=== PATIENT | male | born 1945 | race Caucasian/White ===

== ENCOUNTER 2021-03-11 04:22 | Inpatient (IN) | payer OTHER ==
[~2021-03-11] VITALS: Ht 175.3 cm; Wt 143.1 kg
[2021-03-11] MEDS ORDERED: NITROGLYCERIN SINGLE TAB 0.4 MG SL ONE (04:41)
--- NOTE | 2021-03-11 04:50 | NUR ---
PT BIBA FROM [facility] ON BIPAP VIA [facility]. PT TOLERATING BIPAP WELL. PT GIVEN SOLUMEDROL, ALBUTEROL, DUONEB X 3, 2GM MG AT [facility] & 1/2MG OF VERSED ENROUTE. DIMINISHED IN ALL LIN. PT SITTING ON EDGE OF BED. PIV TO RAC, FLUSHES WELL.
[2021-03-11 04:55] LABS: MEAN CORPUSCULAR HEMOGLOBIN 29.3 pg (27.5-34.5); MEAN PLATELET VOLUME 8.1 fL (7.4-10.4); PLATELET COUNT 224 x10^3/uL (130-400); RED BLOOD COUNT 3.54 x10^6/uL (4.38-5.82); RED CELL DISTRIBUTION WIDTH 15.7 % (9.4-14.8)
[2021-03-11] MEDS ORDERED: ACETAMINOPHEN 325 MG TABLET PO PRN (05:00)
[2021-03-11] MEDS ORDERED: PROMETHAZINE 25 MG/ML, 1ML IM PRN (05:00)
[2021-03-11] MEDS ORDERED: OXYcodone IR 5MG TABLET PO PRN (05:00)
[2021-03-11] MEDS ORDERED: morphine SULFATE 10 MG/ML, 1ML IVPush PRN (05:00)
[2021-03-11] MEDS ORDERED: POLYETHYLENE GLYCOL 17 GM PACKET PO PRN (05:00)
[2021-03-11] MEDS ORDERED: ONDANSETRON ODT 4 MG PO PRN (05:00)
[2021-03-11] MEDS ORDERED: hydrALAzine 20 MG/ML, 1ML IVPush PRN (05:00)
[2021-03-11] MEDS ORDERED: NITROGLYCERIN 0.4 MG BOTTLE (25 TABS) SL PRN (05:00)
[2021-03-11] MEDS ORDERED: HEPARIN 5,000 UNITS/ML, 1ML SQ SCH (05:00)
[2021-03-11] MEDS ORDERED: ONDANSETRON 2MG/ML, 2ML IVPush PRN (05:00)
[2021-03-11] MEDS ORDERED: DOCUSATE 100 MG CAPSULE PO PRN (05:00)
[2021-03-11] MEDS ORDERED: BISACODYL 10 MG SUPP PR PRN (05:00)
[2021-03-11 05:09] LABS: ALBUMIN 3.5 g/dL (3.4-5.0); ANION GAP 12 mmol/L (5-15); CALCIUM 9.1 mg/dL (8.5-10.1); CHLORIDE 111 mmol/L (98-107); CREATININE 4.07 mg/dL (0.7-1.3)
[2021-03-11] MEDS ORDERED: FUROSEMIDE 40 MG/4 ML ONE (05:19)
[2021-03-11] MEDS ORDERED: HEPARIN 5,000 UNITS/ML, 1ML ONE (05:19)
[2021-03-11] MEDS ORDERED: FUROSEMIDE 40 MG/4 ML IV ONE (05:30)
[2021-03-11 05:32] LABS: FREE T4 (FREE THYROXINE) 1.03 ng/dL (0.76-1.46)
[2021-03-11 05:37] LABS: MD YES
[2021-03-11 05:38] LABS: BAND#(MANUAL) 0.16 x10^3/uL; BANDS%(MANUAL) 1 % (0-7); MONOS#(MANUAL) 0.16 x10^3/uL (0.3-2.7); MONOS% (MANUAL) 1 % (2-9); SEG#(MANUAL) 15.97 x10^3/uL (1.8-6.8); SEGS% (MANUAL) 98 % (42-75)
[2021-03-11 05:39] LABS: <PLATELET ESTIMATE> ADEQUATE; <PLT MORPHOLOGY> NORMAL PLT MORPH; <RBC MORPHOLOGY> NORMAL
--- NOTE | 2021-03-11 05:56 | NUR ---
pt able to stand & pivot to chair & bsc. continues to tolerate bipap, will ctm. call light inreach. aware of pending bed assignmt.
[2021-03-11] MEDS ORDERED: ALBUTEROL/IPRATROPIUM 2.5MG/0.5MG, 3 ML NPPB SCH (06:00)
--- NOTE | 2021-03-11 06:55 | NUR ---
Took report from Maryanne Hall RN. Pt in bed siting on the side of the bed for comfort on c-pap with retractions. Denies chest pain, reports that he feels like he is getting enough oxygen "I am trying to slow down my breathing". Denies any needs at this time Addendum: 03/11/21 at 0702 by NEENAICELIJuan Took report from Maryanne Hall RN. Pt in bed siting on the side of the bed for comfort on BIPAP with retractions. Denies chest pain, reports that he feels like he is getting enough oxygen "I am trying to slow down my breathing". Denies any needs at this time
--- NOTE | 2021-03-11 07:17 | NUR ---
Pt can speak in 3-4 word sentences. Called pt's for med list. Left a message to call back.
[2021-03-11] MEDS ORDERED: HYDR-3342 PO (07:52)
[2021-03-11] MEDS ORDERED: METO25TA35 PO (07:52)
[2021-03-11] MEDS ORDERED: SPIR25TA5 PO (07:52)
[2021-03-11] MEDS ORDERED: ASPI-963 PO (07:52)
[2021-03-11] MEDS ORDERED: LOSA1TAB25 PO (07:52)
[2021-03-11] MEDS ORDERED: ATOR10TA9 PO (07:52)
[2021-03-11] MEDS ORDERED: ALBU0.63 NEB (07:52)
[2021-03-11] MEDS ORDERED: INSU100I17 SQ (07:52)
[2021-03-11] MEDS ORDERED: VITA1CAP14 PO (07:52)
[2021-03-11] MEDS ORDERED: TIOT4MIS3 INH (07:52)
[2021-03-11] MEDS ORDERED: PANT20TA4 PO (07:52)
[2021-03-11] MEDS ORDERED: IPRA3AMP30 IN (07:52)
[2021-03-11] MEDS ORDERED: CODE15TA PO (07:52)
[2021-03-11] MEDS ORDERED: FURO20TA3 PO (07:52)
[2021-03-11] MEDS ORDERED: INSU100I28 SQ (07:52)
--- NOTE | 2021-03-11 07:55 | NUR ---
called, med reconcile done
--- NOTE | 2021-03-11 07:55 | NUR ---
KAT JAEGER MD at [facility] Addendum: 03/11/21 at 0817 by JMICELIJuan MD [facility]
--- NOTE | 2021-03-11 08:23 | NUR ---
MD Barkley at bedside talking to pt about intubation. Pt RR increasing.
[2021-03-11] MEDS: PROPOFOL 100 ML IV PRN ×6 (08:59→23:43)
[2021-03-11] MEDS ORDERED: FENTANYL PF 1,000 MCG in SODIUM CHLORIDE 0.9% 80 ML IV PRN (09:00)
[2021-03-11] MEDS ORDERED: SUCCINYLCHOLINE 20 MG/ML, 10ML IVPush ONE (09:00)
[2021-03-11] MEDS ORDERED: ETOMIDATE 20 MG/10 ML IV ONE (09:00)
--- NOTE | 2021-03-11 09:02 | NUR ---
PT IN RR DISTRESS, PT AGREES TO INTUBATION. GABRIELLA, P'T CALLED AND AGREES TO INTUBATION. PT GIVEN 20 MG ETOMIDATE AT 0855, 100 MG SUCCINYLCHOLINE GIVEN AT 0855. PT INTUBEATEDWITH 8.5 TUBE AT 24 AT THE LIP AT 0859. BILAT WRIST RESTRAINTS PUT ON. 16 F YAO CATH PUT IN 120ML URINE OUT. 16 F OG PUT IN ON CONT SUCTION. SET UP FOR CENTRAL LINE PER MD BAHENA.
--- NOTE | 2021-03-11 09:22 | NUR ---
3MG MIDAZOLAM GIVEN PER MD HOLDENM
[2021-03-11] MEDS ORDERED: MIDAZOLAM 1 MG/ML, 2ML IVPush ONE (10:00)
[2021-03-11] MEDS ORDERED: NOREPINEPHRINE 8 MG in SODIUM CHLORIDE 0.9% 242 ML IV PRN (10:00)
--- NOTE | 2021-03-11 10:05 | NUR ---
GAVE REPORT TO FAISAL DUVAL RN, PT TO ROOM 55
[2021-03-11] MEDS: ALBUTEROL/IPRATROPIUM 2.5MG/0.5MG, 3 ML INLINE SCH ×4 (11:00→22:40)
[2021-03-11] MEDS ORDERED: ROCURONIUM 10MG/ML,5ML ONE (11:12)
[2021-03-11] MEDS ORDERED: ETOMIDATE 20 MG/10 ML ONE (11:12)
[2021-03-11] MEDS ORDERED: SUCCINYLCHOLINE 20 MG/ML, 10ML ONE (11:12)
[2021-03-11] MEDS ORDERED: PROPOFOL 10 MG/ML, 100ML IV ONE (11:12)
[2021-03-11] MEDS ORDERED: LIDOCAINE-MPF 1%, 2ML ENDO PRN (11:30)
[2021-03-11] MEDS ORDERED: PHARMACY MAY ADJ FOR RENAL FX MC SCH (11:30)
[2021-03-11] MEDS ORDERED: DEXTROSE 50%, 50ML SYRINGE IVPush PRN (11:30)
[2021-03-11] MEDS ORDERED: ONDANSETRON 2MG/ML, 2ML IV PRN (11:30)
[2021-03-11] MEDS ORDERED: GLUCAGON 1 MG IM PRN (11:30)
[2021-03-11] MEDS ORDERED: DEXTROSE 4 GM TAB.CHEW PO PRN (11:30)
[2021-03-11] MEDS ORDERED: SODIUM BICARB 8.4%, 50ML SYRINGE ONE (12:32)
[2021-03-11] MEDS: INSULIN LISPRO 100 UNITS/ML, PEN SQ-INSULIN SCH ×3 (12:44→21:57)
[2021-03-11] MEDS: SODIUM CHLORIDE FLUSH 10ML SYR IVF SCH ×2 (12:52→21:57)
[2021-03-11] MEDS: SODIUM BICARBONATE 8.4% 150 MEQ in DEXTROSE 5% 1,000 ML IV SCH ×2 (12:52→22:52)
[2021-03-11] MEDS ORDERED: SODIUM BICARBONATE 1 MEQ/ML, 50ML VIAL IVPush ONE (13:00)
[2021-03-11] MEDS ORDERED: SODIUM BICARB 8.4%, 50ML SYRINGE IVPush ONE (14:00)
[2021-03-11] MEDS ORDERED: HEPARIN 5,000 UNITS/ML, 1ML IV ONE (14:30)
[2021-03-11] MEDS: HEPARIN 25,000 UNITS/250ML PMX 250 ML IV PRN (15:13)
[2021-03-11] MEDS: NOREPINEPHRINE 8 MG in SODIUM CHLORIDE 0.9% 242 ML IV PRN ×2 (15:34→22:00)
[2021-03-11] MEDS: HEPARIN 5,000 UNITS/ML, 1ML IV PRN (22:52)
[2021-03-12] MEDS: ALBUTEROL/IPRATROPIUM 2.5MG/0.5MG, 3 ML INLINE SCH ×6 (02:40→23:00)
[2021-03-12 04:29] LABS: BASOPHILS % (AUTO) 0 % (0-1); EOSINOPHILS % (AUTO) 0 % (1-7); LYMPHOCYTES % (AUTO) 4 % (22-44); MEAN CORPUSCULAR HEMOGLOBIN 30.2 pg (27.5-34.5); MEAN CORPUSCULAR HGB CONC 32.1 g/dL (33.2-36.2); MEAN PLATELET VOLUME 7.9 fL (7.4-10.4); MONOCYTES % (AUTO) 10 % (2-9); NEUTROPHILS % (AUTO) 86 % (42-75); PLATELET COUNT 179 x10^3/uL (130-400); RED BLOOD COUNT 3.14 x10^6/uL (4.38-5.82); RED CELL DISTRIBUTION WIDTH 15.3 % (9.4-14.8)
[2021-03-12 04:33] LABS: MD NO
[2021-03-12 04:39] LABS: ALANINE AMINOTRANSFERASE 46 U/L (12-78); ANION GAP 7 mmol/L (5-15); CALCIUM 8.8 mg/dL (8.5-10.1); CHLORIDE 105 mmol/L (98-107); CREATININE 3.94 mg/dL (0.7-1.3)
[2021-03-12 04:46] LABS: ALKALINE PHOSPHATASE 59 U/L (45-117); BILIRUBIN,TOTAL 0.5 mg/dL (0.2-1.0); CHOL/HDL RATIO 3.2; CHOLESTEROL, TOTAL 123 mg/dL (140-239); HDL CHOL % 31 % (26-37); HDL CHOLESTEROL (DIRECT) 38 mg/dL (40-60); LDL CHOLESTEROL,CALCULATED 56 mg/dL (54-169); LDL/HDL RATIO 1.5 (0.5-3.0); TRIGLYCERIDES 146 mg/dL (50-200); VLDL CHOLESTEROL 29 mg/dL (0-25)
[2021-03-12 05:00] VITALS: BP 110/55
[2021-03-12] MEDS: FENTANYL PF 1,000 MCG in SODIUM CHLORIDE 0.9% 80 ML IV PRN (05:43)
[2021-03-12] MEDS: PROPOFOL 100 ML IV PRN ×4 (05:44→22:41)
[2021-03-12] MEDS: INSULIN LISPRO 100 UNITS/ML, PEN SQ-INSULIN SCH ×3 (07:28→17:08)
[2021-03-12] MEDS: AZITHROMYCIN 500 MG in SODIUM CHLORIDE 0.9% 250 ML IV SCH (08:14)
[2021-03-12] MEDS: PANTOPRAZOLE 40 MG IV IVPush SCH (09:36)
[2021-03-12] MEDS: SODIUM CHLORIDE FLUSH 10ML SYR IVF SCH ×2 (09:36→21:02)
[2021-03-12] MEDS: HEPARIN 5,000 UNITS/ML, 1ML IV PRN ×2 (12:36→18:09)
[2021-03-12] MEDS: HEPARIN 25,000 UNITS/250ML PMX 250 ML IV PRN (12:38)
--- NOTE | 2021-03-12 13:54 | NUR ---
Vital AF goal: 70 mls/hr off propofol, 60 mls/hr on propofol Addendum: 03/12/21 at [address] Amended: Links added.
[2021-03-12] MEDS: NOREPINEPHRINE 8 MG in SODIUM CHLORIDE 0.9% 242 ML IV PRN (17:30)
[2021-03-13] MEDS: INSULIN LISPRO 100 UNITS/ML, PEN SQ-INSULIN SCH ×5 (00:20→22:28)
[2021-03-13] MEDS: ALBUTEROL/IPRATROPIUM 2.5MG/0.5MG, 3 ML INLINE SCH ×6 (02:55→22:29)
[2021-03-13] MEDS: HEPARIN 25,000 UNITS/250ML PMX 250 ML IV PRN ×2 (04:55→19:09)
[2021-03-13] MEDS: PROPOFOL 100 ML IV PRN ×4 (05:00→21:02)
[2021-03-13 05:22] LABS: BASOPHILS % (AUTO) 0 % (0-1); EOSINOPHILS % (AUTO) 0 % (1-7); LYMPHOCYTES % (AUTO) 4 % (22-44); MEAN CORPUSCULAR HEMOGLOBIN 29.5 pg (27.5-34.5); MEAN CORPUSCULAR HGB CONC 31.7 g/dL (33.2-36.2); MEAN PLATELET VOLUME 8.1 fL (7.4-10.4); MONOCYTES % (AUTO) 10 % (2-9); NEUTROPHILS % (AUTO) 85 % (42-75); PLATELET COUNT 178 x10^3/uL (130-400); RED BLOOD COUNT 2.97 x10^6/uL (4.38-5.82); RED CELL DISTRIBUTION WIDTH 15.7 % (9.4-14.8)
[2021-03-13 05:25] LABS: ANION GAP 6 mmol/L (5-15); CALCIUM 8.8 mg/dL (8.5-10.1); CHLORIDE 105 mmol/L (98-107); CREATININE 3.61 mg/dL (0.7-1.3)
[2021-03-13 06:05] LABS: MD SCAN
[2021-03-13] MEDS: NOREPINEPHRINE 8 MG in SODIUM CHLORIDE 0.9% 242 ML IV PRN ×3 (07:49→22:03)
[2021-03-13] MEDS: AZITHROMYCIN 500 MG in SODIUM CHLORIDE 0.9% 250 ML IV SCH (07:50)
[2021-03-13] MEDS: CEFTRIAXONE 2 GM in DEXTROSE 5% 50 ML IVPB SCH (07:54)
[2021-03-13] MEDS: INSULIN GLARGINE 100 UNITS/ML, PEN SQ-INSULIN SCH ×2 (08:07→17:19)
[2021-03-13] MEDS: ERYTHROMYCIN OPHTH 0.5%, 1GM EACHEYE SCH ×4 (08:10→21:02)
[2021-03-13] MEDS: PANTOPRAZOLE 40 MG IV IVPush SCH (09:12)
[2021-03-13] MEDS: SODIUM CHLORIDE FLUSH 10ML SYR IVF SCH ×2 (09:13→20:57)
[2021-03-13] MEDS ORDERED: METOPROLOL 1 MG/ML, 5ML ONE (14:06)
[2021-03-13] MEDS: HEPARIN 5,000 UNITS/ML, 1ML IV PRN ×2 (18:14→18:17)
[2021-03-13] MEDS: AMIODARONE 450 MG in DEXTROSE 5% 241 ML IV PRN ×2 (21:27→23:56)
[2021-03-13] MEDS ORDERED: AMIODARONE 150 MG in DEXTROSE 5% 100 ML IV ONE (21:30)
[2021-03-13] MEDS ORDERED: FILTER 0.22 MICRON IV PRN (21:30)
[2021-03-13] MEDS ORDERED: VASOPRESSIN 20 UNIT in SODIUM CHLORIDE 0.9% 99 ML IV PRN (22:00)
[2021-03-13] MEDS ORDERED: SODIUM CHLORIDE 0.9%, 500ML IVBOLUS ONE (22:00)
[2021-03-13 22:17] LABS: BASOPHILS % (AUTO) 0 % (0-1); EOSINOPHILS % (AUTO) 0 % (1-7); LYMPHOCYTES % (AUTO) 4 % (22-44); MEAN CORPUSCULAR HEMOGLOBIN 29.8 pg (27.5-34.5); MEAN CORPUSCULAR HGB CONC 31.6 g/dL (33.2-36.2); MEAN PLATELET VOLUME 8.9 fL (7.4-10.4); MONOCYTES % (AUTO) 9 % (2-9); NEUTROPHILS % (AUTO) 87 % (42-75); PLATELET COUNT 216 x10^3/uL (130-400)
[2021-03-13 22:20] LABS: ANION GAP 7 mmol/L (5-15); CALCIUM 8.3 mg/dL (8.5-10.1); CHLORIDE 104 mmol/L (98-107); CREATININE 4.68 mg/dL (0.7-1.3)
[2021-03-13] MEDS ORDERED: SODIUM ZIRCONIUM CYCLOSILICATE 10 GM PO ONE (23:00)
[2021-03-13 23:14] LABS: MD SCAN
[2021-03-14] MEDS: ALBUTEROL/IPRATROPIUM 2.5MG/0.5MG, 3 ML INLINE SCH ×6 (03:00→23:35)
[2021-03-14] MEDS: HEPARIN 25,000 UNITS/250ML PMX 250 ML IV PRN (05:07)
[2021-03-14] MEDS: NOREPINEPHRINE 8 MG in SODIUM CHLORIDE 0.9% 242 ML IV PRN ×3 (05:08→12:54)
[2021-03-14] MEDS: PROPOFOL 100 ML IV PRN ×2 (05:42→10:04)
[2021-03-14] MEDS: INSULIN LISPRO 100 UNITS/ML, PEN SQ-INSULIN SCH ×4 (05:52→23:49)
[2021-03-14] MEDS: INSULIN GLARGINE 100 UNITS/ML, PEN SQ-INSULIN SCH ×2 (05:53→17:13)
[2021-03-14] MEDS: FENTANYL PF 1,000 MCG in SODIUM CHLORIDE 0.9% 80 ML IV PRN ×2 (05:53→13:10)
[2021-03-14] MEDS: CEFTRIAXONE 2 GM in DEXTROSE 5% 50 ML IVPB SCH (05:54)
[2021-03-14] MEDS: ERYTHROMYCIN OPHTH 0.5%, 1GM EACHEYE SCH ×4 (06:06→22:18)
[2021-03-14 06:09] LABS: MEAN CORPUSCULAR HEMOGLOBIN 30.4 pg (27.5-34.5); MEAN CORPUSCULAR HGB CONC 32.1 g/dL (33.2-36.2); MEAN PLATELET VOLUME 8.7 fL (7.4-10.4); PLATELET COUNT 218 x10^3/uL (130-400); RED BLOOD COUNT 3.22 x10^6/uL (4.38-5.82); RED CELL DISTRIBUTION WIDTH 15.5 % (9.4-14.8)
[2021-03-14 06:18] LABS: ANION GAP 9 mmol/L (5-15); CALCIUM 8.1 mg/dL (8.5-10.1); CHLORIDE 104 mmol/L (98-107); CREATININE 5.16 mg/dL (0.7-1.3); TRIGLYCERIDES 332 mg/dL (50-200)
[2021-03-14 06:49] LABS: MD YES
[2021-03-14 07:13] LABS: BAND#(MANUAL) 1.31 x10^3/uL; BANDS%(MANUAL) 7 % (0-7); LYMPH#(MANUAL) 0.75 x10^3/uL (1-3.4); LYMPHS% (MANUAL) 4 % (22-44); MONOS#(MANUAL) 0.37 x10^3/uL (0.3-2.7); MONOS% (MANUAL) 2 % (2-9); SEG#(MANUAL) 16.27 x10^3/uL (1.8-6.8); SEGS% (MANUAL) 87 % (42-75)
[2021-03-14 07:14] LABS: <PLATELET ESTIMATE> ADEQUATE; <PLT MORPHOLOGY> NORMAL PLT MORPH; ANISOCYTOSIS 1+; TEAR DROPS 1+
[2021-03-14 07:15] LABS: POLYCHROMASIA 1+
[2021-03-14] MEDS ORDERED: ERTAPENEM 0.5 GM in SODIUM CHLORIDE 0.9% 50 ML IV SCH (08:00)
[2021-03-14] MEDS: PANTOPRAZOLE 40 MG IV IVPush SCH (08:14)
[2021-03-14] MEDS: SODIUM CHLORIDE FLUSH 10ML SYR IVF SCH ×2 (08:14→22:18)
[2021-03-14] MEDS ORDERED: HEPARIN 5,000 UNITS/ML, 1ML IV PRN (09:29)
[2021-03-14] MEDS ORDERED: APIXABAN 2.5 MG TABLET PO SCH (09:30)
[2021-03-14] MEDS ORDERED: HEPARIN 25,000 UNITS/250ML PMX 250 ML IV PRN (09:30)
[2021-03-14] MEDS: APIXABAN 5 MG TABLET PO SCH ×2 (10:52→22:18)
[2021-03-14 11:02] LABS: MICROSCOPIC INDICATED
[2021-03-14] MEDS ORDERED: NOREPINEPHRINE 8 MG in SODIUM CHLORIDE 0.9% 242 ML IV PRN (22:30)
[2021-03-15] MEDS: PROPOFOL 100 ML IV PRN (02:06)
[2021-03-15] MEDS: AMIODARONE 450 MG in DEXTROSE 5% 241 ML IV PRN (02:07)
[2021-03-15] MEDS: ALBUTEROL/IPRATROPIUM 2.5MG/0.5MG, 3 ML INLINE SCH (03:20)
[2021-03-15] MEDS: INSULIN LISPRO 100 UNITS/ML, PEN SQ-INSULIN SCH (04:36)
[2021-03-15 04:57] LABS: MEAN CORPUSCULAR HEMOGLOBIN 29.9 pg (27.5-34.5); MEAN CORPUSCULAR HGB CONC 31.9 g/dL (33.2-36.2); MEAN PLATELET VOLUME 8.8 fL (7.4-10.4); PLATELET COUNT 207 x10^3/uL (130-400); RED CELL DISTRIBUTION WIDTH 15.2 % (9.4-14.8)
[2021-03-15 05:07] LABS: ANION GAP 10 mmol/L (5-15); CALCIUM 8.6 mg/dL (8.5-10.1); CHLORIDE 100 mmol/L (98-107)
[2021-03-15 05:08] LABS: CREATININE 5.15 mg/dL (0.7-1.3)
[2021-03-15 05:45] LABS: MD YES
[2021-03-15 05:46] LABS: MONOS#(MANUAL) 0.94 x10^3/uL (0.3-2.7); MONOS% (MANUAL) 6 % (2-9)
[2021-03-15 05:47] LABS: ANISOCYTOSIS 1+; LYMPH#(MANUAL) 1.41 x10^3/uL (1-3.4); LYMPHS% (MANUAL) 9 % (22-44); POLYCHROMASIA 1+; SEG#(MANUAL) 13.35 x10^3/uL (1.8-6.8); SEGS% (MANUAL) 85 % (42-75)
[2021-03-15 05:48] LABS: <PLATELET ESTIMATE> ADEQUATE; <PLT MORPHOLOGY> NORMAL PLT MORPH
[2021-03-15] MEDS: ERYTHROMYCIN OPHTH 0.5%, 1GM EACHEYE SCH (06:10)
[2021-03-15] MEDS: INSULIN GLARGINE 100 UNITS/ML, PEN SQ-INSULIN SCH (06:10)
[2021-03-15] MEDS ORDERED: CALCIUM CHLORIDE 10%, 10ML SYR ONE (11:28)
[2021-03-15] MEDS ORDERED: EPINEPHRINE SYRINGE 0.1 MG/ML, 10ML ONE (11:28)
[2021-03-15] MEDS ORDERED: SODIUM BICARB 8.4%, 50ML SYRINGE ONE (11:28)
== END 2021-03-15 06:49 | disposition expired | DRG 208 ==
LOC: ED 05:07 → EDIP 05:50 → CCU 10:29
PROVIDERS: ADMIT Internal Medicine; ATTEND Internal Medicine
PROC: 5A1945Z Respiratory Ventilation, 24-96 Consecutive Hours (ICD-10-PCS; principal; 2021-03-11)
PROC: 0BH17EZ Insertion of Endotracheal Airway into Trachea, Via Natural or Artificial Opening (ICD-10-PCS; 2021-03-11)
PROC: 5A09357 Assistance with Respiratory Ventilation, Less than 24 Consecutive Hours, Continuous Positive Airway Pressure (ICD-10-PCS; 2021-03-11)
PROC: 02HV33Z Insertion of Infusion Device into Superior Vena Cava, Percutaneous Approach (ICD-10-PCS; 2021-03-11)
PROC: B548ZZA Ultrasonography of Superior Vena Cava, Guidance (ICD-10-PCS; 2021-03-11)
PROC: 5A1D70Z Performance of Urinary Filtration, Intermittent, Less than 6 Hours Per Day (ICD-10-PCS; 2021-03-12)
PROC: 0T9B70Z Drainage of Bladder with Drainage Device, Via Natural or Artificial Opening (ICD-10-PCS; 2021-03-14)
PROC: 0BJ08ZZ Inspection of Tracheobronchial Tree, Via Natural or Artificial Opening Endoscopic (ICD-10-PCS; 2021-03-14)
PROC: 5A12012 Performance of Cardiac Output, Single, Manual (ICD-10-PCS; 2021-03-15)
DX: J96.21 Acute and chronic respiratory failure with hypoxia (principal); G93.41 Metabolic encephalopathy; I50.43 Acute on chronic combined systolic (congestive) and diastolic (congestive) heart failure; J15.211 Pneumonia due to Methicillin susceptible Staphylococcus aureus; N17.0 Acute kidney failure with tubular necrosis; I21.4 Non-ST elevation (NSTEMI) myocardial infarction; E87.2 Acidosis; I13.2 Hypertensive heart and chronic kidney disease with heart failure and with stage 5 chronic kidney disease, or end stage renal disease; I42.9 Cardiomyopathy, unspecified; I47.2 Ventricular tachycardia; I48.92 Unspecified atrial flutter; J44.0 Chronic obstructive pulmonary disease with (acute) lower respiratory infection; J44.1 Chronic obstructive pulmonary disease with (acute) exacerbation; J98.19 Other pulmonary collapse; N18.5 Chronic kidney disease, stage 5; Z68.42 Body mass index [BMI] 45.0-49.9, adult; D64.9 Anemia, unspecified; J96.22 Acute and chronic respiratory failure with hypercapnia; E11.22 Type 2 diabetes mellitus with diabetic chronic kidney disease; G47.30 Sleep apnea, unspecified; E66.01 Morbid (severe) obesity due to excess calories; E87.5 Hyperkalemia; F17.200 Nicotine dependence, unspecified, uncomplicated; H10.9 Unspecified conjunctivitis; I27.20 Pulmonary hypertension, unspecified; I48.91 Unspecified atrial fibrillation; I95.2 Hypotension due to drugs; R57.0 Cardiogenic shock; Z86.79 Personal history of other diseases of the circulatory system; Z95.3 Presence of xenogenic heart valve; Z88.1 Allergy status to other antibiotic agents; Z88.8 Allergy status to other drugs, medicaments and biological substances
CPT/HCPCS: 36415; 36600; 74018; 96374; 96375; 99291; C8929; 31624; 36556; 71045; 76937; 80048; 80053; 80061; 81001; 82040; 82803; 82962; 83036; 83605; 83735; 83880; 84100; 84439; 84443; 84478; 84484; 85025; 85520; 86705; 86706; 87040; 87070; 87077; 87081; 87086; 87147; 87186; 87205; 87340; 90935; 92950; 93005; 94002; 94003; 94640; 94660; G0378; J0456; J0696; J1335; J1644; J1940; J2250; J2704; J3010; J7060; J7070; Q9957; C1751; C9113; J0282; J0330; J1642; J1815; J7040; J7050